=== PATIENT | female | born 1945 | race Hispanic/Latino ===

== ENCOUNTER 2023-10-10 13:43 | Emergency (ER) | payer SELFPAY ==
[2023-10-10] MEDS ORDERED: Boostrix 0.5 ML (Tdap) VIAL (>/=7 yrs of age) ONE (14:43)
[2023-10-10] MEDS ORDERED: Morphine 4 MG/ML VIAL ONE (15:00)
[2023-10-10 15:27] LABS: Bilirubin Negative (Negative); Blood, Urine Negative (Negative); Clarity Clear (Clear); Glucose, Urine (Dipstick) Negative (Negative); Ketone, Urine Negative (Negative); Leukocyte Trace (Negative); Nitrite Negative (Negative); Protein, Urine (Dipstick) Negative (Neg-Trace); Specific Gravity, Urine 1.025 (1.005-1.030); Urobilinogen 0.2 mg/dL (Less than 2); pH, Urine 5.5 (5.0-9.0)
[2023-10-10 15:36] LABS: Bacteria/HPF None Seen HPF (None Seen); CAUTI Indications for Culture Alt mental st,lethar; RBC/HPF None Seen HPF (0-3); Renal Epithelial 0-3 HPF (None Seen)
[2023-10-10 15:37] LABS: Urine Culture Reflex No No
== END 2023-10-10 16:00 | disposition home or self-care (01) ==
LOC: MADERS 13:43
DX: S01.81XA Laceration without foreign body of other part of head, initial encounter (principal); S42.202A Unspecified fracture of upper end of left humerus, initial encounter for closed fracture; I10 Essential (primary) hypertension; E03.9 Hypothyroidism, unspecified; E78.00 Pure hypercholesterolemia, unspecified; Z79.82 Long term (current) use of aspirin; W18.30XA Fall on same level, unspecified, initial encounter
CPT/HCPCS: 70450; 72125; 81001; 90471; 90715; 96372; G0390; J2270